=== PATIENT | female | born 1985 | race Two or more races ===

== ENCOUNTER 2019-08-30 13:17 | Emergency (ER) | payer MEDICAID, OTHER ==
[~2019-08-30] VITALS: Ht 154.9 cm; Wt 86.2 kg
[2019-08-30 13:39] VITALS: BP 122/86
== END 2019-08-30 16:40 | disposition left against medical advice (07) ==
LOC: ER 13:17
DX: M54.5 Low back pain (principal); Z53.21 Procedure and treatment not carried out due to patient leaving prior to being seen by health care provider

== ENCOUNTER 2019-11-24 00:32 | Emergency (ER) | payer OTHER ==
[~2019-11-24] VITALS: Ht 154.9 cm; Wt 81.6 kg
[2019-11-24 01:17] VITALS: BP 149/94
== END 2019-11-24 01:30 | disposition left against medical advice (07) ==
LOC: ER 00:33
DX: M54.5 Low back pain (principal); Z53.21 Procedure and treatment not carried out due to patient leaving prior to being seen by health care provider
CPT/HCPCS: A4565

== ENCOUNTER 2022-05-25 23:47 | Emergency (ER) | payer MEDICAID, OTHER ==
[~2022-05-25] VITALS: Ht 162.6 cm; Wt 75.0 kg
[2022-05-26 00:40] LABS: Basophils # (auto) 0 10 ^3/uL (0-0.2); Basophils % (auto) 0.2 % (0.0-2.0); Eosinophils # (auto) 0 10 ^3/uL (0-0.8); Eosinophils % (auto) 0.2 % (0.0-7.0); Hemoglobin 10.6 g/dL (12.2-16.2); Lymphocytes # (auto) 1.5 10 ^3/uL (0.4-5.4); Monocytes # (auto) 1.2 10 ^3/uL (0-1.3)
[2022-05-26 00:42] LABS: Hematocrit 32.7 % (36.0-46.0); Lymphocytes % (auto) 9.9 % (10.0-50.0); Mean Corpuscular Hemoglobin 26.5 pg (28.0-32.0); Mean Corpuscular Hgb Conc. 32.4 g/dL (32.0-36.0); Mean Corpuscular Volume 81.8 fL (80.0-100.0); Monocytes % (auto) 8.2 % (0.0-12.0); Neutrophils # (auto) 12.3 10 ^3/uL (1.6-8.6); Neutrophils % (auto) 81.5 % (37.0-80.0); Nucleated Red Blood Cells % 0.1 %; Red Cell Distribution Width 14.3 % (11.8-14.3); White Blood Cell 15.1 10^3/uL (4.4-10.8)
[2022-05-26 00:59] LABS: Alanine Aminotransferase 14 U/L (13-56); Albumin 2.8 g/dL (3.4-5.0); Anion Gap 7 (5-15); Aspartate Aminotransferase 10 U/L (15-37); BUN/Creatinine Ratio 13.8 (10.0-20.0); Blood Alcohol < 3.0 mg/dL (0-5); Blood Urea Nitrogen 8 mg/dL (7-18); Calcium 8.1 mg/dL (8.5-10.1); Carbon Dioxide 27 mmol/L (21-32); Chloride 103 mmol/L (98-107); GFR African American 150 mL/min; GFR Non-African American 124 mL/min; Glucose 101 mg/dL (74-106); Potassium 3.5 mmol/L (3.5-5.1); Sodium 137 mmol/L (136-145)
[2022-05-26 01:00] LABS: Acetaminophen < 2.0 ug/mL (10-30); Salicylate < 1.7 mg/dL (2.8-20.0)
[2022-05-26 01:01] LABS: Alkaline Phosphatase 87 U/L (45-117); Bilirubin, Total 0.2 mg/dL (0.2-1.0)
[2022-05-26] MEDS ORDERED: KETOROLAC TROMETH 30 MG/ML 1ML VIAL IV ONE (03:15)
[2022-05-26] MEDS ORDERED: NALO4SPR2 (03:38)
[2022-05-26] MEDS ORDERED: ALBUTEROL SULF 2.5 MG/0.5ML(0.5%) NEB SOLN NEB ONE (04:00)
[2022-05-26] MEDS ORDERED: IPRATROPIUM BROM 0.5 MG/2.5ML INH SOL NEB ONE (04:00)
[2022-05-26 04:45] VITALS: BP 110/64
== END 2022-05-26 04:52 | disposition home or self-care (01) ==
LOC: EDBD 23:47 → ER 23:47
DX: T40.2X1A Poisoning by other opioids, accidental (unintentional), initial encounter (principal); D64.9 Anemia, unspecified; D72.829 Elevated white blood cell count, unspecified; E83.51 Hypocalcemia; E88.09 Other disorders of plasma-protein metabolism, not elsewhere classified; Y92.89 Other specified places as the place of occurrence of the external cause
CPT/HCPCS: 36415; 80053; 80320; 80329; 85025; 93005; 94640; 96374; 99285; J1885; J7644